=== PATIENT | female | born 1945 | race Caucasian/White ===

== ENCOUNTER → 2016-09-08 | Outpatient (CLI) | payer MEDICARE, OTHER ==
[~2016-09-08] MED LIST: AMBIEN 5MG TABLE5 MG PO; ASPIRIN E.C. 8181 MG PO; DETROL LA4 MG PO; DITROPAN XL10 MG PO; FLUTICASONE PR0.005% TP; LIDODERM PATCH TP; NASAREL0.025 MG/1 NAS; OMEPRAZOLE DR20 MG PO; PRIL40 PO; RELAFEN 50500 MG/TAB PO; TENORMIN 5050 MG/TAB PO; TENORMIN25 MG PO; ZOLPIDEM10 MG PO
[2016-09-08 15:47] LABS: HEMATOCRIT 43.3 % (37.0-47.0); HEMOGLOBIN 15.1 g/dl (12.5-16.0); MEAN CELL VOLUME 94 fl (80.0-100.0); MEAN CORPUSCULAR HEMOGLOBIN 33 pg (27.0-31.0); MEAN CORPUSCULAR HGB CONC 35 g/dl (33.0-37.0); MEAN PLATELET VOLUME 11.5 fl (7.4-10.4); PLATELET COUNT 204 K/mm3 (130-400); REDCELL DISTRIBUTION WIDTH-CV 12.1 % (11.5-14.5); WHITE BLOOD COUNT 8.5 K/mm3 (4.8-10.8)
[2016-09-08 16:22] LABS: ERYTHROCYTE SEDIMENTATION RATE 5 mm/hr (0-30)
== END ==
LOC: COL.LAB 15:05
PROVIDERS: Orthopaedic Surgery
DX: Z48.89 Encounter for other specified surgical aftercare (principal); M25.80 Other specified joint disorders, unspecified joint

== ENCOUNTER → 2016-09-24 | Outpatient (CLI) | payer MEDICARE, OTHER ==
[~2016-09-24] VITALS: Ht 170.2 cm; Wt 89.6 kg
[2016-09-24 07:01] VITALS: BP 152/97; PULSE 64
[2016-09-24 08:29] VITALS: BP 176/98; PULSE 56
== END ==
LOC: COL.RAD 06:23
DX: M54.5 Low back pain (principal)
CPT/HCPCS: J3301

== ENCOUNTER → 2016-11-04 | Outpatient (CLI) | payer MEDICARE, OTHER | LOC: MC.RAD 09:11 | DX: Z12.31 Encounter for screening mammogram for malignant neoplasm of breast (principal); Z80.3 Family history of malignant neoplasm of breast ==

== ENCOUNTER → 2016-11-16 | Outpatient (CLI) | payer MEDICARE, OTHER | LOC: COL.VAS 08:12 | DX: I83.92 Asymptomatic varicose veins of left lower extremity (principal) ==

== ENCOUNTER → 2017-03-01 | Outpatient (CLI) | payer MEDICARE, OTHER | LOC: COL.RAD 10:39 | DX: M25.552 Pain in left hip (principal) | CPT/HCPCS: J3301; Q9967 ==

== ENCOUNTER → 2017-12-05 | Outpatient (CLI) | payer MEDICARE, OTHER | LOC: MC.RAD 13:53 | DX: Z12.31 Encounter for screening mammogram for malignant neoplasm of breast (principal); Z41.1 Encounter for cosmetic surgery ==

== ENCOUNTER → 2018-12-14 | Outpatient (CLI) | payer MEDICARE, OTHER | LOC: MC.RAD 11:05 | DX: Z12.31 Encounter for screening mammogram for malignant neoplasm of breast (principal); Z98.890 Other specified postprocedural states ==

== ENCOUNTER 2021-09-20 10:08 | Emergency (ER) | payer MEDICARE, OTHER ==
[~2021-09-20] VITALS: Ht 170.2 cm; Wt 95.5 kg
[2021-09-20 10:17] VITALS: TEMP 97.5
[2021-09-20] MEDS ORDERED: DOXYCYCLINE 10100 MG PO (10:44)
[2021-09-20] MEDS ORDERED: ZOFRAN ODT4 MG PO (10:44)
[2021-09-20 10:55] VITALS: BP 147/83; PULSE 64
== END 2021-09-20 10:55 | disposition home or self-care (01) ==
LOC: COL.ER 10:08
DX: L03.116 Cellulitis of left lower limb (principal); I10 Essential (primary) hypertension; G43.909 Migraine, unspecified, not intractable, without status migrainosus; Z79.899 Other long term (current) drug therapy

== ENCOUNTER 2022-01-12 07:02 | Day surgery (SDC) | payer MEDICARE, OTHER ==
[~2022-01-12] VITALS: Ht 170.2 cm; Wt 97.4 kg
[~2022-01-12 07:02] MED LIST changes: +DOXYCYCLINE 10100 MG PO; +ZOFRAN ODT4 MG PO
[2022-01-12] MEDS ORDERED: LINZESS72 MCG PO (07:33)
[2022-01-12] MEDS ORDERED: GEMTESA75 MG PO (07:34)
[2022-01-12] MEDS ORDERED: ASPIRIN E.C. 8181 MG PO (07:35)
[2022-01-12] MEDS ORDERED: XYZAL5 MG PO (07:35)
[2022-01-12] MEDS ORDERED: RESTASIS (07:36)
[2022-01-12] MEDS ORDERED: CALCIUM 600600 MG PO (07:37)
[2022-01-12] MEDS ORDERED: FISH OIL (07:37)
[2022-01-12] MEDS ORDERED: B12 PO (07:37)
[2022-01-12 07:39] VITALS: BP 131/89; PULSE 76; TEMP 98.2
--- NOTE | 2022-01-12 07:53 | NUR ---
Maricarmen has left the facility to return apon PT discharge #[phone]
[2022-01-12 09:05] VITALS: BP 148/86; PULSE 62; TEMP 97.7
[2022-01-12 09:20] VITALS: BP 152/89; PULSE 57
[2022-01-12 09:35] VITALS: BP 155/83; PULSE 62
--- NOTE | 2022-01-12 09:49 | NUR ---
PT dismissed from endo via wheelchair to the PT entrence by Tanvi [facility] and transferred into the care of her , who is driving private truck. PT has personal belonings in a white PT belongings bag.
--- NOTE | 2022-01-12 11:12 | NUR ---
0905 PATIENT ARRIVES TO [facility] [place] [facility] VIA CART. AMBULATED TO CART WITH 1:1 ASSIST. PATIENT INCONTINENT OF STOOL. PATIENT TO BEDSIDE COMMODE. TRAVON CARE DONE. VSS. REPORT AND CARE OF PATIENT RECEIVED FROM SIMÓN REYNA. PATIENT REQUESTS CRANBERRY JUICE AND SALTINES WITH PEANUT BUTTER. 0916 DR. ROSS IN ROOM SPEAKING WITH PATIENT REGARDING PROCEDURE. PATIENT VERBALIZED UNDERSTANDING. 09 PATIENT ALER. TOLERATING PO WELL. DENIES COMPLAINT. 934 IV D/C'D. CATH INTACT. TOLERATED WELL. COTTON BALL WIHT COBAN PLACED AT SITE. D/C INSTRUCTIONS VERBAL AND WRITTEN GIVEN TO PATIENT. QUESTIONS INVITED AND ANSWERED. PATIENT VERBALIZED UNDERSTANDING.
== END 2022-01-12 09:50 | disposition home or self-care (01) ==
LOC: SDCO 07:02
DX: Z12.11 Encounter for screening for malignant neoplasm of colon (principal); D12.3 Benign neoplasm of transverse colon; K64.0 First degree hemorrhoids; Z80.0 Family history of malignant neoplasm of digestive organs; K55.20 Angiodysplasia of colon without hemorrhage; Z83.71 Family history of colonic polyps
CPT/HCPCS: J2704; J7030